=== PATIENT | female | born 1965 | race Caucasian/White ===

== ENCOUNTER → 2021-02-28 | Outpatient (CLI) | payer OTHER ==
[2021-03-02 16:11] LABS: HPV 16 Negative (Negative); HPV 18 Negative (Negative); HPV OTHER HR TYPES Negative (Negative)
== END | disposition home or self-care (01) ==
LOC: LAB SHORT 16:44
PROVIDERS: Family Medicine
DX: Z01.419 Encounter for gynecological examination (general) (routine) without abnormal findings (principal)
CPT/HCPCS: 87624; G0123

== ENCOUNTER → 2021-03-07 | Outpatient (CLI) | payer OTHER | END | disposition home or self-care (01) | LOC: LAB SHORT 08:11 | DX: N93.9 Abnormal uterine and vaginal bleeding, unspecified (principal) | CPT/HCPCS: 88305 ==

== ENCOUNTER → 2021-03-14 | Outpatient (CLI) | payer OTHER | LOC: LAB SHORT 07:36 → LAB 07:36 | DX: L98.9 Disorder of the skin and subcutaneous tissue, unspecified (principal); L82.1 Other seborrheic keratosis | CPT/HCPCS: 88305 ==

== ENCOUNTER 2021-04-26 06:21 | Day surgery (SDC) | payer OTHER ==
[~2021-04-26] VITALS: Ht 160 cm; Wt 103.2 kg
[2021-04-26] MEDS ORDERED: LISI20 PO (06:47)
[2021-04-26] MEDS ORDERED: IRON18 MG PO (06:48)
[2021-04-26] MEDS ORDERED: SHAROBEL0.35 MG PO (06:48)
[2021-04-26] MEDS ORDERED: NITR100CA PO (06:48)
[2021-04-26] MEDS ORDERED: DILT120ERA PO (06:48)
--- NOTE | 2021-04-26 08:02 | NUR ---
04/26/21 0802 Brionna Roach 250CC NACL FLUID DEFICIT (MYOSURE). SURGEON AND ANESTHESIA AWARE.
== END 2021-04-26 09:01 | disposition home or self-care (01) ==
LOC: ORSCSDS 06:21
PROVIDERS: Obstetrics & Gynecology
PROC: 0UDB8ZZ Extraction of Endometrium, Via Natural or Artificial Opening Endoscopic (ICD-10-PCS; principal; 2021-04-26 07:30)
PROC: 0UB98ZZ Excision of Uterus, Via Natural or Artificial Opening Endoscopic (ICD-10-PCS; principal; 2021-04-26 07:30)
DX: N95.0 Postmenopausal bleeding (principal); D25.0 Submucous leiomyoma of uterus; E03.9 Hypothyroidism, unspecified; I10 Essential (primary) hypertension; Z79.899 Other long term (current) drug therapy; E66.01 Morbid (severe) obesity due to excess calories; Z68.41 Body mass index [BMI] 40.0-44.9, adult
CPT/HCPCS: 88305; A9270; J1100; J1885; J2250; J2405; J2704; J3010

== ENCOUNTER 2021-08-02 08:11 | Day surgery (SDC) | payer OTHER ==
[~2021-08-02] VITALS: Ht 160 cm; Wt 105.0 kg
[~2021-08-02 08:11] MED LIST: DILT120ERA PO; IRON18 MG PO; LISI20 PO; NITR100CA PO; SHAROBEL0.35 MG PO
--- NOTE | 2021-08-02 09:23 | NUR ---
Ambulatory in Day Surgery. History, Chart, Medications and Allergies reviewed before start of procedure. Lungs clear T/O to Auscultation. Patient confirms NPO status and agrees with scheduled surgery. Pre-Op teaching done. Pt verbalizes understanding.
--- NOTE | 2021-08-02 13:58 | NUR ---
Dressing to procedure site clean, dry, intact with no visible drainage, swelling, erythema or bruising noted. Discharge instructions reviewed with patient. Patient verbalizes understanding. Copy given to patient to take home. Discharged via wheelchair to private car for ride home.
== END 2021-08-02 13:55 | disposition home or self-care (01) ==
LOC: ORSCMMR 08:11 → NM 09:00 → ORSCMMR 13:55 → NM 02-02 09:00
PROVIDERS: Surgery
PROC: 07B50ZX Excision of Right Axillary Lymphatic, Open Approach, Diagnostic (ICD-10-PCS; principal; 2021-08-02 10:00)
PROC: 0HBT0ZZ Excision of Right Breast, Open Approach (ICD-10-PCS; principal; 2021-08-02 10:00)
DX: C50.411 Malignant neoplasm of upper-outer quadrant of right female breast (principal); Z17.0 Estrogen receptor positive status [ER+]; D36.0 Benign neoplasm of lymph nodes; I10 Essential (primary) hypertension; E03.9 Hypothyroidism, unspecified; E66.01 Morbid (severe) obesity due to excess calories; Z68.41 Body mass index [BMI] 40.0-44.9, adult; Z79.899 Other long term (current) drug therapy
CPT/HCPCS: 38792; 76098; 88307; 88342; A9270; A9520; J0690; J1100; J1885; J2250; J2405; J2704; J3010; J7120; Q9968

== ENCOUNTER 2021-09-29 07:22 | Day surgery (SDC) | payer OTHER ==
[~2021-09-29] VITALS: Ht 160 cm; Wt 103.9 kg
--- NOTE | 2021-09-29 08:54 | NUR ---
09/29/21 0854 Good Flores PT REPORTS ALLERGY TO ADHESIVE TAPE, DR BIGGS INFORMED. PAPER TAPE USED TO KEEP SHIELD IN PLACE.
== END 2021-09-29 09:25 | disposition home or self-care (01) ==
LOC: ORSCSDS 07:22
PROVIDERS: Ophthalmology
PROC: 08RK3JZ Replacement of Left Lens with Synthetic Substitute, Percutaneous Approach (ICD-10-PCS; principal; 2021-09-29 08:30)
DX: H25.13 Age-related nuclear cataract, bilateral (principal); C50.919 Malignant neoplasm of unspecified site of unspecified female breast; I10 Essential (primary) hypertension; E03.9 Hypothyroidism, unspecified; Z79.899 Other long term (current) drug therapy
CPT/HCPCS: J2001; J2250; J3010; J3301; J7040; V2632

== ENCOUNTER 2022-07-26 07:43 | Day surgery (SDC) | payer OTHER ==
[~2022-07-26] VITALS: Ht 160 cm; Wt 101.7 kg
[~2022-07-26 07:43] MED LIST changes: +ALLEGRA ALLERG180 MG PO; +ANASTROZOLE1 M7 PO; +DICL75ER PO; +HYDCHL25; +POTCHL20ER PO; +VENL37.5ER PO
--- NOTE | 2022-07-26 08:28 | NUR ---
Ambulatory in Day Surgery History, Chart, Medications and Allergies reviewed before start of procedure. Lungs clear T/O to Auscultation. Patient confirms NPO status and agrees with scheduled surgery. Pre-Op teaching done. Pt verbalizes understanding. Patient States Post-Procedure ride home has been arranged.
--- NOTE | 2022-07-26 10:18 | NUR ---
07/26/22 Chrissy Tapia HISTORY, CHART, MEDICATIONS AND ALLERGIES REVIEWED BEFORE START OF PROCEDURE. PATIENT CONFIRMS NPO STATUS AND AGREES WITH SCHEDULED PROCEDURE. 3-LEAD EKG REVIEWED WITH PHYSICIAN PRIOR TO START OF PROCEDURE. MONITOR INTACT WITH CONTINUOUS PULSE OXIMETRY,CAPNOGRAPHY, 3-LEAD EKG, INTERMITTENT BP. SUPPLEMENTAL O2 TO BE TITRATED THROUGHOUT PROCEDURE TO MAINTAIN O2 SATURATION ABOVE 90%. PATIENT DETERMINED TO BE ASA APPROPRIATE FOR PROPOFOL SEDATION PRIOR TO START OF PROCEDURE BY DR. DOUGLAS.
--- NOTE | 2022-07-26 11:07 | NUR ---
REPORT RECEIVED FROM EROS ROBERTSON RN. VSS. PT ABLE TO REPOSITION SELF IN BED. PT REQUESTING PO FLUIDS AND TOLERATING THEM WELL. PT DENIES PAIN OR DISCOMFORT AT THIS TIME.
--- NOTE | 2022-07-26 11:28 | NUR ---
Patient up to Ambulate independently. Gait steady. Discharge instructions reviewed with patient. Patient verbalizes understanding. Copy given to patient to take home. Patient States Post-Procedure ride home has been arranged. Discharged via wheelchair to private car for ride home. PT BELONGINGS RETURNED TO PT.
== END 2022-07-26 22:34 | disposition home or self-care (01) ==
LOC: ORSCMMR 07:43 → ORD 08:30 → ORSCMMR 08:30
PROVIDERS: Internal Medicine Gastroenterology
PROC: 0DBM8ZX Excision of Descending Colon, Via Natural or Artificial Opening Endoscopic, Diagnostic (ICD-10-PCS; principal; 2022-07-26 08:30)
PROC: 0DBH8ZX Excision of Cecum, Via Natural or Artificial Opening Endoscopic, Diagnostic (ICD-10-PCS; principal; 2022-07-26 08:30)
DX: Z12.11 Encounter for screening for malignant neoplasm of colon (principal); D12.0 Benign neoplasm of cecum; D12.4 Benign neoplasm of descending colon; K57.30 Diverticulosis of large intestine without perforation or abscess without bleeding; I10 Essential (primary) hypertension; Z85.3 Personal history of malignant neoplasm of breast; E66.9 Obesity, unspecified; Z68.39 Body mass index [BMI] 39.0-39.9, adult; F32.A Depression, unspecified; Z79.899 Other long term (current) drug therapy
CPT/HCPCS: 88305; J0461; J2250; J2704; J7120